=== PATIENT | male | born 1935 | race Caucasian/White ===

== ENCOUNTER 2022-01-12 13:23 | Inpatient (IN) | payer MEDICARE ==
[~2022-01-12 13:23] MED LIST: Iopamidol 300 61% 100 ML VIAL FS ONE
[2022-01-12] MEDS ORDERED: HumaLOG 300 UNITS/3 ML VIAL SC PRN (15:11)
[2022-01-12] MEDS ORDERED: Dextrose 50% Abboject 50 ML SYRINGE SLOW IVP PRN (15:11)
[2022-01-12] MEDS ORDERED: Dextrose 5% in Water 1,000 ML IV PRN (15:11)
[2022-01-12] MEDS ORDERED: Heparin 10,000 UNITS/ 10 ML VIAL SLOW IVP SCH (15:15)
[2022-01-12] MEDS ORDERED: Heparin 25,000 units/D5W 500 ML IVPB SCH (15:15)
[2022-01-12] MEDS ORDERED: traMADol HCl 50 MG TAB PO PRN (15:32)
[2022-01-12 15:33] VITALS: BMI 16.5
[2022-01-12 16:00] LABS: #Eosinphils 0.1 10x3/uL (0.0-0.5); #Monocytes 0.8 10x3/uL (0.0-1.1); %Basophils 0.3 % (0.0-2.0); %Eosinophils 1.4 % (0.0-6.0); %Lymphocytes 24.6 % (18.0-47.0); %Monocytes 11.6 % (0.0-10.0); %Neutrophils 61.9 % (40.0-75.0); Hemoglobin 10.9 g/dL (13.5-17.5); Mean Corpuscular HGB CONC 32.9 g/dL (32.0-36.0); Mean Corpuscular Hemoglobin 30.7 pg (27.0-33.0); Mean Corpuscular Volume 93.2 fl (81.2-95.1); Mean Platelet Volume 10.1 fl (7.4-10.4); Platelet Count 296 10x3/uL (150-450); RBC Distribution Width 14.1 % (11.5-14.5); Red Blood Cell (RBC) Count 3.55 10x6/uL (4.32-5.72); White Blood Cell (WBC) Count 6.5 10x3/uL (3.5-10.5)
[2022-01-12 16:30] LABS: Troponin I 12.104 ng/mL (< 0.028)
[2022-01-12 16:36] LABS: Anion Gap 15 mmol/L (10-20); BUN (Urea Nitrogen) 26 mg/dL (8.4-25.7); Calc. Creatinine Clearance 37 mL/min (70-130); Calcium 7.3 mg/dL (7.8-10.44); Carbon Dioxide 25 mmol/L (23-31); Chloride 107 mmol/L (98-107); Glucose 85 mg/dL (83-110); Potassium 3.8 mmol/L (3.5-5.1); Sodium 143 mmol/L (136-145)
[2022-01-12] MEDS ORDERED: Nitroglycerin 50 MG/250 ML BOT 0 ML ONE (17:11)
[2022-01-12] MEDS ORDERED: Heparin 10,000 UNITS/ 10 ML VIAL ONE (17:11)
[2022-01-12] MEDS ORDERED: Adenosine 6 MG/2 ML VIAL ONE (17:12)
[2022-01-12] MEDS ORDERED: Sodium Chloride 0.9% 1,000 ML ONE (17:12)
[2022-01-12] MEDS ORDERED: Lidocaine 1% (PF) 30 ML VIAL ONE (17:23)
[2022-01-12] MEDS ORDERED: Fentanyl 100 MCG/2 ML VIAL ONE (17:23)
[2022-01-12] MEDS ORDERED: Midazolam HCl 2 mg/2 ml Vial ONE ×2 (17:23→18:43)
[2022-01-12] MEDS ORDERED: Benzonatate 100 MG CAP PO PRN (18:49)
[2022-01-12] MEDS ORDERED: TICAGRELOR 90 MG TABLET ONE (19:00)
[2022-01-12] MEDS ORDERED: Protamine Sulfate 50 MG/5 ML VIAL ONE (19:08)
[2022-01-12] MEDS ORDERED: Milk Of Magnesia 30 ML UDCUP PO PRN (19:39)
[2022-01-12] MEDS ORDERED: Mag-Al 1200 mg/1200 mg/30 ML UDCUP PO PRN (19:39)
[2022-01-12] MEDS ORDERED: Sodium Chloride 0.9% 1,000 ML IV SCH (19:45)
[2022-01-12] MEDS: Carvedilol 25 MG TAB PO SCH (20:51)
[2022-01-12] MEDS: Gabapentin 300 MG CAP PO SCH (20:51)
[2022-01-12] MEDS ORDERED: Tamsulosin HCl 0.4 MG CAP ONE (20:52)
[2022-01-12] MEDS ORDERED: Lidocaine 5% Patch TD SCH (21:00)
[2022-01-12] MEDS ORDERED: Tamsulosin HCl 0.4 MG CAP PO SCH (21:00)
[2022-01-12] MEDS ORDERED: Atorvastatin Calcium 40 MG TAB PO SCH (21:00)
[2022-01-12] MEDS ORDERED: Acetaminophen/Codeine 30-300mg Tablet PO PRN ×2 (21:00)
[2022-01-12] MEDS ORDERED: Morphine 2 MG/ML VIAL SLOW IVP PRN (21:30)
[2022-01-12] MEDS ORDERED: cloNIDine 0.1 MG TAB PO PRN (21:30)
[2022-01-12] MEDS ORDERED: Nitroglycerin 0.4 MG TAB (25 Tab Bottle) SL PRN (21:30)
[2022-01-12] MEDS ORDERED: Zolpidem Tartrate 5 MG TAB PO PRN (21:30)
[2022-01-12] MEDS ORDERED: Morphine 4 MG/ML VIAL SLOW IVP PRN ×2 (21:30→21:45)
[2022-01-13 05:57] LABS: #Eosinphils 0.1 10x3/uL (0.0-0.5); #Monocytes 0.7 10x3/uL (0.0-1.1); #Neutrophils 4.6 10x3/uL (1.5-8.4); %Basophils 0.3 % (0.0-2.0); %Eosinophils 0.9 % (0.0-6.0); %Lymphocytes 16.8 % (18.0-47.0); %Monocytes 10.2 % (0.0-10.0); %Neutrophils 71.5 % (40.0-75.0); Hemoglobin 9.2 g/dL (13.5-17.5); Mean Corpuscular HGB CONC 33.2 g/dL (32.0-36.0); Mean Corpuscular Hemoglobin 30.9 pg (27.0-33.0); Mean Platelet Volume 10.4 fl (7.4-10.4); Platelet Count 265 10x3/uL (150-450); RBC Distribution Width 14.3 % (11.5-14.5); Red Blood Cell (RBC) Count 2.98 10x6/uL (4.32-5.72); White Blood Cell (WBC) Count 6.4 10x3/uL (3.5-10.5)
[2022-01-13 06:05] LABS: ALT (SGPT) 12 U/L (8-55); AST (SGOT) 30 U/L (5-34); Albumin 2.7 g/dL (3.4-4.8); Alkaline Phosphatase 68 U/L (40-110); Anion Gap 14 mmol/L (10-20); BUN (Urea Nitrogen) 30 mg/dL (8.4-25.7); Bilirubin, Total 0.6 mg/dL (0.2-1.2); Calc. Creatinine Clearance 37 mL/min (70-130); Carbon Dioxide 23 mmol/L (23-31); Cardiac Risk 3.1 (Less than 4.5); Chloride 108 mmol/L (98-107); Cholesterol 94 mg/dl (< 200 Desired); Globulin 3.1 g/dL (2.4-3.5); Glucose 89 mg/dL (83-110); HDL Cholesterol 30 mg/dL (>60 Neg Risk); LDL Cholesterol, Calculated 49 mg/dL; Potassium 4.3 mmol/L (3.5-5.1); Protein, Total 5.8 g/dL (5.8-8.1); Sodium 141 mmol/L (136-145); Triglycerides 76 mg/dL (Less than 150)
[2022-01-13] MEDS: Carvedilol 25 MG TAB PO SCH (08:48)
[2022-01-13] MEDS: Gabapentin 300 MG CAP PO SCH (08:48)
[2022-01-13] MEDS ORDERED: Meloxicam 7.5 MG TAB PO SCH (09:00)
[2022-01-13] MEDS ORDERED: Losartan Potassium 50 MG TAB PO SCH (09:00)
[2022-01-13] MEDS ORDERED: Citalopram 20 MG TAB PO SCH (09:00)
[2022-01-13] MEDS ORDERED: Hydrochlorothiazide 25 MG TAB PO SCH (09:00)
[2022-01-13] MEDS ORDERED: Aspirin Chewable 81 MG TAB PO SCH (09:00)
[2022-01-13] MEDS ORDERED: Amlodipine 5 MG TAB PO SCH (09:00)
[2022-01-13] MEDS ORDERED: Transdermal Patch Removal TOP SCH (09:00)
[2022-01-13] MEDS ORDERED: Finasteride 5 MG TAB PO SCH (09:00)
[2022-01-13] MEDS ORDERED: Fluticasone Propionate Nasal Spray 16 gm Bottle NASAL SCH (09:00)
[2022-01-13] MEDS ORDERED: TICAGRELOR 90 MG TABLET PO SCH (09:00)
[2022-01-13] MEDS ORDERED: Atorvastatin Calcium 10 MG TAB PO SCH (09:00)
[2022-01-13 12:40] VITALS: BP 127/57; TEMP 98.2
[2022-01-13 12:40] LABS: Hemoglobin A1c 5.4 % (4.0-6.0)
== END 2022-01-13 16:30 | disposition home or self-care (01) | DRG 246 ==
LOC: CSHTELE 13:23 → OBSVTOIN 15:08
PROVIDERS: ADMIT Internal Medicine; ATTEND Family Medicine
PROC: 027034Z Dilation of Coronary Artery, One Artery with Drug-eluting Intraluminal Device, Percutaneous Approach (ICD-10-PCS; principal; 2022-01-12)
PROC: 4A023N7 Measurement of Cardiac Sampling and Pressure, Left Heart, Percutaneous Approach (ICD-10-PCS; 2022-01-12)
PROC: B2111ZZ Fluoroscopy of Multiple Coronary Arteries using Low Osmolar Contrast (ICD-10-PCS; 2022-01-12)
PROC: B3101ZZ Fluoroscopy of Thoracic Aorta using Low Osmolar Contrast (ICD-10-PCS; 2022-01-12)
PROC: B2131ZZ Fluoroscopy of Multiple Coronary Artery Bypass Grafts using Low Osmolar Contrast (ICD-10-PCS; 2022-01-12)
PROC: B2151ZZ Fluoroscopy of Left Heart using Low Osmolar Contrast (ICD-10-PCS; 2022-01-12)
PROC: 8E0ZXY6 Isolation (ICD-10-PCS; 2022-01-12)
DX: I21.29 ST elevation (STEMI) myocardial infarction involving other sites (principal); U07.1 COVID-19; I25.810 Atherosclerosis of coronary artery bypass graft(s) without angina pectoris; T82.868A Thrombosis due to vascular prosthetic devices, implants and grafts, initial encounter; M25.511 Pain in right shoulder; J44.9 Chronic obstructive pulmonary disease, unspecified; E78.00 Pure hypercholesterolemia, unspecified; E11.9 Type 2 diabetes mellitus without complications; G89.29 Other chronic pain; I25.10 Atherosclerotic heart disease of native coronary artery without angina pectoris; E78.5 Hyperlipidemia, unspecified; I10 Essential (primary) hypertension; M54.9 Dorsalgia, unspecified; F17.210 Nicotine dependence, cigarettes, uncomplicated; Z88.5 Allergy status to narcotic agent; Y83.8 Other surgical procedures as the cause of abnormal reaction of the patient, or of later complication, without mention of misadventure at the time of the procedure; Z88.8 Allergy status to other drugs, medicaments and biological substances; Z98.890 Other specified postprocedural states; Z89.432 Acquired absence of left foot; Z89.431 Acquired absence of right foot; Z79.84 Long term (current) use of oral hypoglycemic drugs; Z95.1 Presence of aortocoronary bypass graft; Z79.82 Long term (current) use of aspirin; Z79.899 Other long term (current) drug therapy
CPT/HCPCS: 36415; 36416; 71045; 80048; 80053; 80061; 83036; 84484; 85025; 85347; 85730; 92937; 92978; 93005; 93010; 93459; 99152; 99153; C1725; C1753; C1760; C1874; C1887; C9604; J0153; J1644; J2001; J2250; J2720; J3010; J7050; Q9967

== ENCOUNTER 2022-04-04 09:36 | Observation (INO) | payer MEDICARE ==
[2022-04-04 10:30] LABS: #Eosinphils 0.2 10x3/uL (0.0-0.5); #Monocytes 0.6 10x3/uL (0.0-1.1); #Neutrophils 4.3 10x3/uL (1.5-8.4); %Basophils 0.2 % (0.0-2.0); %Eosinophils 2.5 % (0.0-6.0); %Lymphocytes 15.8 % (18.0-47.0); %Monocytes 10.1 % (0.0-10.0); %Neutrophils 71.1 % (40.0-75.0); Hemoglobin 9.6 g/dL (13.5-17.5); Mean Corpuscular HGB CONC 32.9 g/dL (32.0-36.0); Mean Corpuscular Hemoglobin 28.6 pg (27.0-33.0); Mean Corpuscular Volume 86.9 fl (81.2-95.1); Mean Platelet Volume 11.5 fl (7.4-10.4); Platelet Count 288 10x3/uL (150-450); RBC Distribution Width 16.3 % (11.5-14.5); Red Blood Cell (RBC) Count 3.36 10x6/uL (4.32-5.72)
[2022-04-04 11:25] LABS: ALT (SGPT) 9 U/L (8-55); AST (SGOT) 20 U/L (5-34); Acetaminophen Less than 10.0 mcg/mL (10.0-30.0); Albumin 3.2 g/dL (3.4-4.8); Alcohol Less than 10 mg/dL (Less than 10); Alkaline Phosphatase 115 U/L (40-110); Anion Gap 15 mmol/L (10-20); BUN (Urea Nitrogen) 27 mg/dL (8.4-25.7); Bilirubin, Total 0.3 mg/dL (0.2-1.2); CK (CPK) 148 U/L (30-200); Calc. Creatinine Clearance 0 mL/min (70-130); Calcium 8.2 mg/dL (7.8-10.44); Carbon Dioxide 21 mmol/L (23-31); Chloride 106 mmol/L (98-107); Globulin 3.3 g/dL (2.4-3.5); Glucose 94 mg/dL (83-110); Magnesium 1.1 mg/dL (1.6-2.6); Potassium 4.7 mmol/L (3.5-5.1); Protein, Total 6.5 g/dL (5.8-8.1); Salicylate Less than 8.0 mg/dL (15.0-30.0); Sodium 137 mmol/L (136-145)
[2022-04-04 11:54] LABS: SARS-CoV-2 NAA Rapid Test Not Detected (NotDetected)
[2022-04-04] MEDS ORDERED: Magnesium 2 GM/50 ML BAG (IN WATER) ONE (12:08)
[2022-04-04 12:10] LABS: Bilirubin Neg (Negative); Blood, Urine Negative (Negative); Clarity Clear (Clear); Glucose, Urine (Dipstick) Normal (Negative); Ketone, Urine Negative (Negative); Leukocyte Negative (Negative); Nitrite Negative (Negative); Protein, Urine (Dipstick) 15 mg/dl (Neg-Trace); Specific Gravity, Urine 1.005 (1.002-1.036); Urobilinogen Normal mg/dL (Less than 2)
[2022-04-04 12:20] LABS: Amphetamine Not Detected (NotDetected); Barbiturates Screen Not Detected (NotDetected); Benzodiazepine Screen Not Detected (NotDetected); Cocaine Metabolite Screen Not Detected (NotDetected); Methadone Not Detected (NotDetected); Methamphetamine Not Detected (NotDetected); Opiate Screen Not Detected (NotDetected); Oxycodone Screen Not Detected (NotDetected); Phencyclidine (PCP) Not Detected (NotDetected); THC/Cannabinoid Screen Not Detected (NotDetected); Tricyclic Screen Not Detected (NotDetected)
[2022-04-04] MEDS ORDERED: HumaLOG 300 UNITS/3 ML VIAL SC PRN ×2 (13:35)
[2022-04-04] MEDS ORDERED: Dextrose 50% Abboject 50 ML SYRINGE SLOW IVP PRN (13:35)
[2022-04-04] MEDS ORDERED: Acetaminophen 325 MG TAB PO PRN (13:35)
[2022-04-04] MEDS ORDERED: Dextrose 5% in Water 1,000 ML IV PRN (13:35)
[2022-04-04] MEDS ORDERED: hydrALAZINE 20 MG/ML VIAL SLOW IVP PRN (13:44)
[2022-04-04] MEDS ORDERED: Electrolyte Replacement Protocol 1 EACH FS SCH (14:00)
[2022-04-04] MEDS ORDERED: Magnesium 2 GM/50 ML(in water) 2 GM in Premix Bag 1 BAG IVPB SCH (14:30)
[2022-04-04] MEDS ORDERED: Aspirin 81 mg Enteric Coated Tablet PO SCH (15:00)
[2022-04-04 15:03] LABS: Phosphorus 2.7 mg/dL (2.3-4.7)
[2022-04-04] MEDS ORDERED: Amlodipine 5 MG TAB PO SCH (15:30)
[2022-04-04] MEDS ORDERED: Losartan 25 MG TAB PO SCH (15:30)
[2022-04-04 19:51] LABS: Hemoglobin A1c 5.1 % (4.0-6.0)
[2022-04-04] MEDS ORDERED: Lidocaine 5% Patch TD SCH (21:00)
[2022-04-04] MEDS ORDERED: Tamsulosin HCl 0.4 MG CAP PO SCH (21:00)
[2022-04-04] MEDS: Gabapentin 300 MG CAP PO SCH (21:18)
[2022-04-04] MEDS: TICAGRELOR 90 MG TABLET PO SCH (21:18)
[2022-04-05 04:10] LABS: #Eosinphils 0.2 10x3/uL (0.0-0.5); #Monocytes 0.7 10x3/uL (0.0-1.1); #Neutrophils 3.9 10x3/uL (1.5-8.4); %Basophils 0.2 % (0.0-2.0); %Eosinophils 2.9 % (0.0-6.0); %Lymphocytes 18.4 % (18.0-47.0); %Monocytes 11.7 % (0.0-10.0); %Neutrophils 66.6 % (40.0-75.0); Hemoglobin 8.9 g/dL (13.5-17.5); Mean Corpuscular HGB CONC 33.5 g/dL (32.0-36.0); Mean Corpuscular Hemoglobin 29.1 pg (27.0-33.0); Mean Corpuscular Volume 86.9 fl (81.2-95.1); Mean Platelet Volume 11.1 fl (7.4-10.4); Platelet Count 240 10x3/uL (150-450); RBC Distribution Width 16.3 % (11.5-14.5); Red Blood Cell (RBC) Count 3.06 10x6/uL (4.32-5.72); White Blood Cell (WBC) Count 5.9 10x3/uL (3.5-10.5)
[2022-04-05 04:35] LABS: Anion Gap 14 mmol/L (10-20); BUN (Urea Nitrogen) 23 mg/dL (8.4-25.7); Calc. Creatinine Clearance 45 mL/min (70-130); Calcium 7.9 mg/dL (7.8-10.44); Carbon Dioxide 23 mmol/L (23-31); Cardiac Risk 2.6 (Less than 4.5); Chloride 109 mmol/L (98-107); Cholesterol 88 mg/dl (< 200 Desired); Glucose 100 mg/dL (83-110); HDL Cholesterol 34 mg/dL (>60 Neg Risk); LDL Cholesterol, Calculated 44 mg/dL; Potassium 3.9 mmol/L (3.5-5.1); Sodium 142 mmol/L (136-145); Triglycerides 51 mg/dL (Less than 150)
[2022-04-05] MEDS ORDERED: Magnesium 2 GM/50 ML(in water) 2 GM in Premix Bag 1 BAG IVPB SCH (05:00)
[2022-04-05] MEDS ORDERED: Transdermal Patch Removal TOP SCH (09:00)
[2022-04-05] MEDS ORDERED: Aspirin 81 mg Enteric Coated Tablet PO SCH (09:00)
[2022-04-05] MEDS ORDERED: Bupropion 150 MG XL TAB PO SCH (09:00)
[2022-04-05] MEDS ORDERED: Amlodipine 5 MG TAB PO SCH (09:00)
[2022-04-05] MEDS ORDERED: Enoxaparin Sodium 40 MG/0.4 ML SYRINGE SC SCH ×2 (09:00)
[2022-04-05] MEDS ORDERED: Atorvastatin Calcium 40 MG TAB PO SCH (09:00)
[2022-04-05] MEDS ORDERED: Citalopram 20 MG TAB PO SCH (09:00)
[2022-04-05] MEDS ORDERED: Losartan Potassium 50 MG TAB PO SCH (09:00)
[2022-04-05] MEDS ORDERED: Finasteride 5 MG TAB PO SCH (09:00)
[2022-04-05] MEDS: Gabapentin 300 MG CAP PO SCH ×2 (09:05→15:09)
[2022-04-05] MEDS: TICAGRELOR 90 MG TABLET PO SCH (09:06)
[2022-04-05 16:51] VITALS: BP 121/89; TEMP 98
== END 2022-04-05 18:21 | disposition home health service (06) ==
LOC: CSHERS 09:36 → CSHTELE 13:23
PROVIDERS: ADMIT Student in an Organized Health Care Education/Training Program; ATTEND Student in an Organized Health Care Education/Training Program
DX: R53.1 Weakness (principal); R29.898 Other symptoms and signs involving the musculoskeletal system; E83.42 Hypomagnesemia; R00.1 Bradycardia, unspecified; D64.9 Anemia, unspecified; Z95.5 Presence of coronary angioplasty implant and graft; E11.9 Type 2 diabetes mellitus without complications; I10 Essential (primary) hypertension; N40.0 Benign prostatic hyperplasia without lower urinary tract symptoms; E78.5 Hyperlipidemia, unspecified; F17.210 Nicotine dependence, cigarettes, uncomplicated; Z79.899 Other long term (current) drug therapy; Z79.84 Long term (current) use of oral hypoglycemic drugs; Z79.82 Long term (current) use of aspirin; Z95.1 Presence of aortocoronary bypass graft; J44.9 Chronic obstructive pulmonary disease, unspecified; Z20.822 Contact with and (suspected) exposure to COVID-19
CPT/HCPCS: 70450; 70551; 71045; 72148; 80048; 80061; 80306; 80307; 81003; 82140; 82550; 82962 ×2; 83036; 83735 ×2; 84100; 85025; 93005; 93923; 96365; 96366 ×2; 96372; 96376; 97110; 97116; 97139 ×2; 97530; 97535; 99285; G0378 ×3; U0002; 36415; 36416; 80053; 84443; J1650; J3475

== ENCOUNTER 2022-06-02 10:25 | Outpatient (CLI) | payer MEDICARE | END 2022-06-02 10:26 | disposition home or self-care (01) | LOC: CSHMRI 10:25 | PROVIDERS: ATTEND Neurological Surgery | DX: M47.12 Other spondylosis with myelopathy, cervical region (principal); M47.22 Other spondylosis with radiculopathy, cervical region; M54.6 Pain in thoracic spine; M47.812 Spondylosis without myelopathy or radiculopathy, cervical region; M48.02 Spinal stenosis, cervical region; M47.814 Spondylosis without myelopathy or radiculopathy, thoracic region; M89.9 Disorder of bone, unspecified; N28.9 Disorder of kidney and ureter, unspecified | CPT/HCPCS: 72141; 72146 ==